=== PATIENT | male | born 1975 | race Caucasian/White ===

== ENCOUNTER → 2017-03-10 | Outpatient (CLI) | payer OTHER ==
[2017-03-10 12:18] LABS: Basophils # (A) 0.1 k/uL (0-0.2); Basophils % (A) 1 %; CH 31.2; CHCM 33.8; Eosinophils # (A) 0.2 k/uL (0-0.7); Eosinophils % (A) 2 %; HCT 46.2 % (39.0-53.0); HDW 2.75; HGB 15.4 gm/dL (13.0-17.5); Luc # (Auto) 0.36; Luc % (Auto) 4; Lymphocytes # (A) 3.2 k/uL (1.0-4.8); Lymphocytes % (A) 33 %; MCHC 33.4 g/dL (31.0-37.0); MCV 92.8 fL (80.0-100.0); Mean Platelet Volume 7.6; Monocytes # (A) 0.6 k/uL (0-1.0); Monocytes % (A) 7 %; Neutrophils # (A) 5.1 k/uL (1.3-7.7); Neutrophils % (A) 54 %; RBC 4.97 m/uL (4.30-5.90); RDW 13.7 % (11.5-15.5); WBC 9.5 k/uL (3.8-10.6); WBC (Perox) 9.53
--- NOTE | 2017-03-11 15:53 | MR ---
EXAMINATION TYPE: MR brain/cspine wo/w DATE OF EXAM: 03/10/2017 11:26 AM COMPARISON: 08/18/2015 HISTORY: 41-year-old male follow up MS. TECHNIQUE: Multiplanar, multisequence images of the brain and brainstem is performed without and wit h utilizing 15 mL intravenous MultiHance gadolinium contrast. Demyelinating disease protocol with ad ditional Sagittal Flair sequence performed. Subsequent multiplanar, multisequence imaging of the cervical spine without and with contrast. FINDINGS: BRAIN: T2 Lesions Present : Yes along with Orozco's fingers. Approximate Number of Lesions: Again, difficult to count due to some being not well defined, approxim ately within each cerebral hemisphere. Locations Identified : Juxtacortical, deep white matter, periventricular, especially periatrial, and also callososeptal. Redemonstrated lesion within the left left ventral paco, right thalamus, and righ t middle cerebellar peduncle. Size of Reference Lesion(s): 1. 9 x 8 mm left frontal lobe, axial image 22, stable. Enhancing Lesion(s) Present: No. T1 Hypointense Lesion(s) Present: Yes. Change from Prior: Aside from periatrial lesions appearing minimally less bulky as compared to prior exam, overall appearance is unchanged. Diffusion weighted images demonstrate no evidence of a recent infarct or other diffusion abnormality. There is no worrisome extra-axial fluid collection. The ventricular system and cisternal spaces ar e normal in size and appearance. The brain volume is age appropriate. Midline structures demonstrate normal morphology. The craniocervical junction appears within normal limits. Post contrast images demonstrate no abnormal enhancement. The dural venous sinuses appear pa tent. Some stable trace trapped fluid within the inferior mastoid air cells. Slight leftward nasal septal d eviation. Globes are intact. CERVICAL SPINE: No craniocervical junction of the midbody, predental space widening, or prevertebral soft tissue swel ling. Normal alignment of the cervical spine. Very mild early desiccation of the C2-C3, C3-C4, and C5-C6 intervertebral discs. No focal disc herniation. Scattered facet arthropathy mid to lower cervical spine. No significant spinal canal or neuroforaminal stenosis. No discrete T2 cord signal abnormality with some mild artifacts projecting over the cord no enhanceme nt of the cervical cord. No prevertebral or paravertebral soft tissue abnormality seen. COMBINED IMPRESSION: BRAIN: 1. Redemonstrated moderate to advanced changes of MS. No enhancing plaques. Aside from the periatrial lesions being minimally less bulky, overall disease is stable. CERVICAL SPINE: 1. Minimal early intervertebral disc desiccation at a few levels. Otherwise, negative MRI of the cerv ical spine; no convincing evidence of demyelinating disease in the cord.
== END | disposition home or self-care (01) ==
LOC: RADMRIMAIN 10:14
PROVIDERS: ATTEND Nurse Practitioner Gerontology
DX: G35 Multiple sclerosis (principal)
CPT/HCPCS: 85025; 70553; 72156; 36415; A9577

== ENCOUNTER → 2018-01-22 | Outpatient (CLI) | payer OTHER ==
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
== END | disposition home or self-care (01) ==
LOC: RADXRYALE 13:16
PROVIDERS: ATTEND Internal Medicine
DX: M25.519 Pain in unspecified shoulder (principal)

== ENCOUNTER → 2018-03-15 | Outpatient (CLI) | payer OTHER ==
--- NOTE | 2018-03-16 19:15 | MR ---
EXAMINATION TYPE: MR shoulder LT wo con DATE OF EXAM: 03/15/2018 COMPARISON: Radiograph 01/22/2018 HISTORY: 42-year-old male with left shoulder pain TECHNIQUE: Multiplanar, multisequence imaging of the left shoulder is performed without contrast. FINDINGS: There is intermediate signal within the intracapsular portion of the long head biceps tendon at the j unction with the extracapsular portion, sagittal T2 FS image 12. The extracapsular portion remains ap propriately situated along the bicipital groove. Borderline thickening of the coracohumeral ligament at 3.6 mm and some strandy signal intensities in the rotator cuff interval. Mild heterogeneous signal of the subscapularis tendon which remains intact. Mild degenerative joint space narrowing and capsular hypertrophy at the acromioclavicular joint. Ther e is slight encroachment on the subacromial space appears preserved fat plane between the underlying supraspinatus myotendinous junction. Trace fluid/thickening of the subacromial/subdeltoid bursa with bursal sided fraying of the supraspin atus tendon. There is some focal tendinosis at the footprint of the infraspinatus tendon and anterior ly along the articular sided fibers of the supraspinatal tendon measuring 8 x 7 mm. No discrete tear of either the supraspinatus or infraspinatus tendons. Preserved bulk of the rotator cuff musculature. There is very subtle edema within the teres minor mu scle seen with tight windowing on the sagittal T2 FS sequence. Evaluation of the glenohumeral joint shows no discrete labral tear by nonarthrographic technique and no paralabral cyst. The joint articular cartilage is maintained. No joint effusion. No Hill-Sachs deformity or os acromiale. Mild patchy red marrow hyperplasia is present and can be seen in setting of anemia, obesity, smoking, and chronic disease. IMPRESSION: 1. Long head biceps tendinosis at the junction of the intracapsular and extracapsular portions. There is also borderline thickening of the coracohumeral ligament/biceps yifan which could represent a mi ld sprain. 2. There is bursal sided fraying of the supraspinatus tendon. Additionally, focal insertional tendino sis of the anterior supraspinatus tendon and also of the posterior infraspinatus tendon. No discrete rotator cuff tear. 3. Very subtle edema within the teres minor muscle seen with tight windowing on the fluid sensitive s equence. Correlate for possible quadrilateral space syndrome. No fatty atrophy is seen at this time. 4. Mild AC joint OA.
== END | disposition home or self-care (01) ==
LOC: RADMRIMAIN 06:48
PROVIDERS: ATTEND Internal Medicine
DX: M67.814 Other specified disorders of tendon, left shoulder (principal); M19.012 Primary osteoarthritis, left shoulder; R60.9 Edema, unspecified

== ENCOUNTER 2018-04-23 12:56 | Emergency (ER) | payer OTHER ==
[2018-04-23 13:05] VITALS: BP 111/69; PULSE 76; RESP 16; TEMP 97.5
[2018-04-23 14:06] LABS: Basophils % (A) 0 %; Eosinophils # (A) 0.1 k/uL (0-0.7); Eosinophils % (A) 1 %; HCT 43.9 % (39.0-53.0); HGB 14.3 gm/dL (13.0-17.5); Lymphocytes # (A) 2.9 k/uL (1.0-4.8); Lymphocytes % (A) 27 %; MCH 29.7 pg (25.0-35.0); MCHC 32.5 g/dL (31.0-37.0); MCV 91.2 fL (80.0-100.0); Mean Platelet Volume 7.5; Monocytes # (A) 0.6 k/uL (0-1.0); Monocytes % (A) 6 %; Neutrophils # (A) 6.8 k/uL (1.3-7.7); Neutrophils % (A) 64 %; Platelet Count 170 k/uL (150-450); RBC 4.81 m/uL (4.30-5.90); WBC 10.7 k/uL (3.8-10.6)
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
[2018-04-23 14:19] LABS: ALT 27 U/L (21-72); AST 24 U/L (17-59); Albumin 3.6 g/dL (3.5-5.0); Alcohol <10 mg/dL; Alkaline Phosphatase 97 U/L (38-126); Amylase 34 U/L (30-110); Anion Gap 7 mmol/L; Blood Urea Nitrogen 12 mg/dL (9-20); Calcium 8.9 mg/dL (8.4-10.2); Carbon Dioxide 29 mmol/L (22-30); Chloride 102 mmol/L (98-107); Glucose 157 mg/dL (74-99); Lipase 54 U/L (23-300); Potassium 4.3 mmol/L (3.5-5.1); Sodium 138 mmol/L (137-145); Total Bilirubin 0.4 mg/dL (0.2-1.3); Total Protein 6.1 g/dL (6.3-8.2)
--- NOTE | 2018-04-23 14:20 | XR ---
EXAMINATION TYPE: XR pelvis AP view DATE OF EXAM: 04/23/2018 COMPARISON: NONE HISTORY: Pain The osseous structures are intact and the joint spaces are preserved. No acute fracture is seen. Vi sualized bowel gas pattern is nonspecific. Arthropathy of the hips. Correlate for chronic acetabular labral tears. IMPRESSION: 1. No acute fracture.
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
[2018-04-23 14:23] LABS: Partial Thromboplastin Time 23.4 sec (22.0-30.0)
[2018-04-23 14:37] LABS: Creatine Kinase 128 U/L (55-170)
[2018-04-23 14:45] LABS: Glucose,Whole Blood 102 mg/dL (75-99)
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
[2018-04-23 14:49] LABS: Creatine Kinase MB 1.3 ng/mL (0.0-2.4); Troponin I <0.012 ng/mL (0.000-0.034)
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
--- NOTE | 2018-04-23 17:29 | XR ---
EXAMINATION TYPE: XR wrist limited RT DATE OF EXAM: 04/23/2018 COMPARISON: Today HISTORY: Post reduction TECHNIQUE: 2 views FINDINGS: 2 views are obtained through the cast but show transverse impacted fracture of the distal r adius. Major fragments are in good position. There is normal alignment. Fractures comminuted. IMPRESSION: Satisfactory reduction of the radius fracture. No complicating process seen.
== END 2018-04-23 17:55 | disposition home or self-care (01) ==
LOC: EC 12:56
DX: S52.501A Unspecified fracture of the lower end of right radius, initial encounter for closed fracture (principal); S00.31XA Abrasion of nose, initial encounter; V29.9XXA Motorcycle rider (driver) (passenger) injured in unspecified traffic accident, initial encounter; Y92.410 Unspecified street and highway as the place of occurrence of the external cause
CPT/HCPCS: 36415; 93005; 86900; 86901; 80053; 82150; 82550; 82553; 83605; 83690; 84484; 85025; 85610; 85730; 86850; 80320; 72170; 73090; 73100; 73130; 71045; 72125; 70450; 71260; 74177; 99284; 25605; 99152; 99153; 96374; Q9967

== ENCOUNTER → 2018-10-09 | Outpatient (CLI) | payer OTHER ==
--- NOTE | 2018-10-10 07:16 | US ---
EXAMINATION TYPE: US thyroid st tissue head/neck DATE OF EXAM: 10/09/2018 COMPARISON: NONE CLINICAL HISTORY: E04.1 THYROID CYST. GLAND SIZE: Right Lobe: 5.0 x 1.3 x 1.6 cm Overall Parenchyma: heterogenous Left Lobe: 4.0 x 1.0 x 1.4 cm Overall Parenchyma: heterogeneous Isthmus Thickness: 0.2m NODULES RIGHT: # of nodules measured on right: 1 1. 0.9 x 0.7 cm 0.8 cystic nodule at the lower pole with well-defined margins; . This nodule is wid er than tall and shows no intranodular vascularity. Prior size: No previous LEFT: # of nodules measured on left: 0 ISTHMUS: # of nodules measured in the isthmus: 0 Bilateral neck scanned, no evidence of lymphadenopathy. IMPRESSION: 1. Nonspecific cystic nodule right thyroid lobe. Otherwise unremarkable study.
== END ==
LOC: RADUSWWP 15:41
PROVIDERS: ATTEND Internal Medicine
DX: E04.1 Nontoxic single thyroid nodule (principal)
CPT/HCPCS: 76536

== ENCOUNTER → 2019-01-17 | Outpatient (CLI) | payer OTHER ==
--- NOTE | 2019-01-19 12:02 | MR ---
EXAMINATION TYPE: MR brain/cspine wo/w DATE OF EXAM: 01/17/2019 COMPARISON: 03/10/2017 HISTORY: MS, hypersomnia TECHNIQUE: Multiplanar, multisequence images of the brain and brainstem is performed without and with IV contras t, utilizing 6.5 mL intravenous Gadavist . FINDINGS: Diffusion weighted images demonstrate no evidence of a recent infarct or other diffusion ab normality. The ventricular system and cisternal spaces are normal in size and appearance. The brain volume is age appropriate. Areas of abnormal signal involving the basal ganglia likely related to pr ominent Virchow-Cosme spaces. Focal area of abnormal signal involving the right thalamus is nonspecif ic. No enhancement. Midline structures demonstrate normal morphology. The craniocervical junction appears within normal limits. Post contrast images demonstrate no abnormal enhancement. The dural venous sinuses appear pa tent. There is a nasal septal deviation changes of chronic mild sinusitis. Trace amount of fluid surr ounding the optic nerves is nonspecific WHITE MATTER: There are confluent and numerous areas of abnormal signal within the white matter. There are approximately 80-90 areas of abnormal signal seen within the white matter. Largest lesion measures approximately 1.4 cm. There are lesions perpendicular to ventricular system. There is abnormal signal within the corpus callosum and there is thinning of the corpus callosum No enhancing lesions. Relative to the prior exam regions appear to be similar in size, number and morphology Single lesion is seen within the left paco anteriorly stable. A single lesion is seen in the posterior fossa within the right cerebellar peduncle which is stable. IMPRESSION: 1. Stable diffuse white matter changes. Differential diagnosis includes demyelinating process. Number and size of lesions are stable and unchanged from the prior exam. There are no enhancing lesions. MRI CERVICAL SPINE: CLINICAL HISTORY: MS TECHNIQUE: Multiplanar, multisequence imaging of the cervical spine is performed without and with IV contrast, 6.5 cc of Gadavist was given intravenously. COMPARISON: None FINDINGS: Sagittal images of the cervical spine show the craniocervical junction to appear within nor mal limits. The cervical and upper thoracic spinal cord is normal in course, caliber, and signal. Vertebral alignment is anatomic. The vertebral body and intravertebral disk heights are normal. The bone marrow signal intensity is within normal limits. Axial images show there is no significant focal disc disease, spinal canal stenosis, neural foraminal narrowing, or spinal cord compromise at any cervical level. IMPRESSION: 1. No disc herniation, canal stenosis, or foraminal encroachment. No abnormal signal within the spina l cord.
== END | disposition home or self-care (01) ==
LOC: RADMRIMAIN 09:17
PROVIDERS: ATTEND Nurse Practitioner Gerontology
DX: R90.82 White matter disease, unspecified (principal); G47.19 Other hypersomnia; G35 Multiple sclerosis; Z79.899 Other long term (current) drug therapy
CPT/HCPCS: 70553; 72156; A9585

== ENCOUNTER → 2019-01-22 | Outpatient (CLI) | payer OTHER ==
[2019-01-22 12:16] LABS: Anisocytosis Slight; Basophils % (A) 1 %; Eosinophils # (A) 0.2 k/uL (0-0.7); Eosinophils % (A) 4 %; HCT 39.9 % (39.0-53.0); HGB 13.2 gm/dL (13.0-17.5); Lymphocytes # (A) 1.1 k/uL (1.0-4.8); Lymphocytes % (A) 18 %; MCH 30.6 pg (25.0-35.0); MCHC 32.9 g/dL (31.0-37.0); Mean Platelet Volume 7.5; Monocytes # (A) 0.7 k/uL (0-1.0); Monocytes % (A) 11 %; Neutrophils # (A) 3.9 k/uL (1.3-7.7); Neutrophils % (A) 63 %; RBC 4.29 m/uL (4.30-5.90); RDW 19.3 % (11.5-15.5); WBC 6.2 k/uL (3.8-10.6)
[2019-01-22 12:18] LABS: Platelet Count 145 k/uL (150-450)
== END | disposition home or self-care (01) ==
LOC: LABWHC1 09:49
PROVIDERS: ATTEND Nurse Practitioner Gerontology
DX: G47.19 Other hypersomnia (principal); G35 Multiple sclerosis
CPT/HCPCS: 36415; 85025

== ENCOUNTER → 2019-04-29 | Outpatient (CLI) | payer OTHER ==
--- NOTE | 2019-04-29 17:19 | XR ---
PROCEDURE: XR femur LT - 4V DATE AND TIME: 04/29/2019 5:03 PM CLINICAL INDICATION: PHH; C34.90, G4.909, G35 TECHNIQUE: AP and lateral views, total 4 views. COMPARISON: 04/23/2018 AP pelvis radiograph. FINDINGS: Imaging obtained from the left hip to the left knee. There is no fracture or malalignment. There is subtle osteopenia in the proximal-most left femoral shaft with ill-defined zones of transiti on. This is a subtle finding and not definitively pathologic. However, MRI or total body bone scan ca n be used to study the left femur with greater sensitivity than radiographs. Also, there is a 1 cm smoothly-marginated curvilinear calcification, intimately related to the midsha ft anterior femoral cortex. This has benign appearance. The joints and soft tissues are unremarkable. IMPRESSION: Proximal femoral shaft nonspecific subtle finding.
== END | disposition home or self-care (01) ==
LOC: RADXRMAIN 16:48
PROVIDERS: ATTEND Internal Medicine Hematology & Oncology
DX: C34.90 Malignant neoplasm of unspecified part of unspecified bronchus or lung (principal); G43.909 Migraine, unspecified, not intractable, without status migrainosus; G35 Multiple sclerosis

== ENCOUNTER 2019-05-27 11:46 | Emergency (ER) | payer OTHER ==
--- NOTE | 2019-05-27 12:01 | ED ---
General Adult HPI - General Chief complaint: Fall Stated complaint: Fall Time Seen by Provider: 05/27/19 11:49 Source: patient, EMS, RN notes reviewed Mode of arrival: EMS Limitations: altered mental status, physical limitation - History of Present Illness Initial comments: Patient is a unresponsive 43-year-old male presenting to the emergency departmen t by EMS. History is very limited. Patient is nonverbal at this time. Nurse reports that patient did provide his name and date but was receiving report from EMS. Patient is unable to state his name or provide any verbal capability at this point. Patient reportedly was found by child age 10-12 in the bathroom. EMS was called. No family is present at this time. Patient reportedly has a history of some unknown cancer. Reportedly his cancer has "blown up "per the child. Patient reportedly receives treatment daily however further history regarding this is limited. There is also report that patient is DO NOT RESUSCITATE however no paperwork was available. EMS found patient on the floor in the bathroom between the wall and a commode. They have concern regarding patient not using the left side and deviating gaze to the right. Unclear patient has history of similar symptoms previously. - Related Data Home Medications Medication Instructions Recorded Confirmed Citalopram Hydrobromide [CeleXA] 20 mg PO DAILY 04/23/18 05/27/19 Dextroamphetamine/Amphetamine 30 mg PO DAILY 04/23/18 05/27/19 [Adderall] Gabapentin [Neurontin] 300 mg PO TID 04/23/18 05/27/19 Tysabri 1 dose IV Q30D 04/23/18 05/27/19 Baclofen [Lioresal] 20 mg PO Q8H 05/27/19 05/27/19 Allergies Allergy/AdvReac Type Severity Reaction Status Date / Time No Known Allergies Allergy Verified 05/27/19 12:31 Review of Systems ROS Statement: Those systems with pertinent positive or pertinent negative responses have been documented in the HPI. ROS Other: All systems not noted in ROS Statement are negative. Limitations: ROS unobtainable due to patients medical condition Past Medical History Past Medical History: Cancer, GERD/Reflux, Neurologic Disorder Additional Past Medical History / Comment(s): Multiple sclerosis. LUNG CANCER- NONSQUAMOUS. History of Any Multi-Drug Resistant Organisms: None Reported Past Surgical History: Hernia Repair, Orthopedic Surgery Past Anesthesia/Blood Transfusion Reactions: No Reported Reaction Past Psychological History: No Psychological Hx Reported Smoking Status: Current every day smoker Past Alcohol Use History: None Reported Past Drug Use History: None Reported General Exam Limitations: altered mental status, physical limitation General appearance: other (Patient is alert with deviation of the gaze to the right.) Head exam: Present: other (Soft tissue swelling left frontal) Eye exam: Present: PERRL, other (Eyes are deviated to the right) ENT exam: Present: normal oropharynx Neck exam: Present: normal inspection Respiratory exam: Present: normal lung sounds bilaterally Cardiovascular Exam: Present: regular rate, normal rhythm GI/Abdominal exam: Present: soft. Absent: tenderness Extremities exam: Present: normal inspection Neurological exam: Present: alert, altered, other (Left-sided neglect. Nonverbal. Eyes deviated to the right. Apparent normal strength on the right. Significant weakness on the left.) Expanded Neurological exam: Present: total aphasia, protecting the airway Cranial nerves: EOM's Intact: Abnormal Left (Eyes are deviated to the right) Motor strength exam: RUE: 5, LUE: 0, RLE: 5, LLE: 2/1 Eye Response: (4) open spontaneously Motor Response: (4) withdraws to pain Verbal Response: (1) no verbal response Psychiatric exam: Present: other (Nonverbal) Skin exam: Present: normal color. Absent: rash Course Vital Signs 05/27/19 05/27/19 05/27/19 11:50 12:50 13:00 Temperature 98 F Pulse Rate 98 92 90 Respiratory 24 18 18 Rate Blood Pressure 122/93 123/87 120/88 O2 Sat by Pulse 100 98 98 Oximetry - Reevaluation(s) Reevaluation #1: 05/27/19 12:06 Code stroke was called at noon Family is not present. Attempted to call patient's oncologist however the office closed. Oncologist has been paged. 05/27/19 12:20 is present. Last known well was 5:30 AM. Patient has known stage IV lung cancer. Patient does have brain metastases. Patient does have mild difficulty with walking normally and occasionally uses a cane. She states patient is no intubation. Patient does receive chemotherapy here with Dr. Servin. Patient has previously had radiation. 05/27/19 13:00 Case was discussed with Dr. Wade. This was interrupted secondary to having to go to a code on the floor. Case was again discussed with Dr. Wade who states patient does have a history of untreated brain metastases. He states TPA is contraindicated secondary to this. He did have MRI from [facility] on 05/09/19 showing concern for lesions in the right occipital and left parietal and possible other lesions. Dr. Mccullough is aware and involved with case 05/27/19 14:00 Case was discussed in detail with Dr. henderson, covering for Dr. Arceo, who will admit. Case was also discussed WITH neurology, Dr. Mora who will consult. She agrees to no aspirin secondary to thrombocytopenia EKG Findings - EKG Comments: EKG Findings:: Sinus tachycardia 101. TN 112. QRS 78. QT 340. QTc 451. Normal axis. Normal QRS. No acute ST change. Medical Decision Making - Lab Data Result diagrams: 05/27/19 12:07 05/27/19 12:07 Lab Results 05/27/19 05/27/19 05/27/19 Range/Units 12:01 12:07 12:07 WBC 1.2 L* (3.8-10.6) k/uL RBC 4.03 L (4.30-5.90) m/uL Hgb 11.1 L (13.0-17.5) gm/dL Hct 34.7 L (39.0-53.0) % MCV 86.1 (80.0-100.0) fL MCH 27.5 (25.0-35.0) pg MCHC 32.0 (31.0-37.0) g/dL RDW 14.8 (11.5-15.5) % Plt Count 17 L* (150-450) k/uL Neutrophils % (Manual) 60 % Lymphocytes % (Manual) 34 % Monocytes % (Manual) 4 % Eosinophils % (Manual) 2 % Neutrophils # (Manual) 0.72 L (1.3-7.7) k/uL Lymphocytes # (Manual) 0.41 L (1.0-4.8) k/uL Monocytes # (Manual) 0.05 (0-1.0) k/uL Eosinophils # (Manual) 0.02 (0-0.7) k/uL Nucleated RBCs 1 H (0-0) /100 WBC Poikilocytosis (manual Present Anisocytosis (manual) Present PT (9.0-12.0) sec INR (<1.2) APTT (22.0-30.0) sec Sodium 136 L (137-145) mmol/L Potassium 4.0 (3.5-5.1) mmol/L Chloride 96 L (98-107) mmol/L Carbon Dioxide 28 (22-30) mmol/L Anion Gap 12 mmol/L BUN 25 H (9-20) mg/dL Creatinine 1.14 (0.66-1.25) mg/dL Est GFR (CKD-EPI)AfAm >90 (>60 ml/min/1.73 sqM) Est GFR (CKD-EPI)NonAf 79 (>60 ml/min/1.73 sqM) Glucose 190 H (74-99) mg/dL POC Glucose (mg/dL) 182 H (75-99) mg/dL POC Glu Mosaic Layer ID Demetrius Suarez Calcium 9.4 (8.4-10.2) mg/dL Total Bilirubin 0.5 (0.2-1.3) mg/dL AST 62 H (17-59) U/L ALT 35 (21-72) U/L Alkaline Phosphatase 132 H (38-126) U/L Creatine Kinase 195 H (55-170) U/L Total Protein 6.8 (6.3-8.2) g/dL Albumin 3.6 (3.5-5.0) g/dL 05/27/19 Range/Units 12:07 WBC (3.8-10.6) k/uL RBC (4.30-5.90) m/uL Hgb (13.0-17.5) gm/dL Hct (39.0-53.0) % MCV (80.0-100.0) fL MCH (25.0-35.0) pg MCHC (31.0-37.0) g/dL RDW (11.5-15.5) % Plt Count (150-450) k/uL Neutrophils % (Manual) % Lymphocytes % (Manual) % Monocytes % (Manual) % Eosinophils % (Manual) % Neutrophils # (Manual) (1.3-7.7) k/uL Lymphocytes # (Manual) (1.0-4.8) k/uL Monocytes # (Manual) (0-1.0) k/uL Eosinophils # (Manual) (0-0.7) k/uL Nucleated RBCs (0-0) /100 WBC Poikilocytosis (manual Anisocytosis (manual) PT 11.4 (9.0-12.0) sec INR 1.1 (<1.2) APTT 20.9 L (22.0-30.0) sec Sodium (137-145) mmol/L Potassium (3.5-5.1) mmol/L Chloride (98-107) mmol/L Carbon Dioxide (22-30) mmol/L Anion Gap mmol/L BUN (9-20) mg/dL Creatinine (0.66-1.25) mg/dL Est GFR (CKD-EPI)AfAm (>60 ml/min/1.73 sqM) Est GFR (CKD-EPI)NonAf (>60 ml/min/1.73 sqM) Glucose (74-99) mg/dL POC Glucose (mg/dL) (75-99) mg/dL POC Glu Mosaic Layer ID Calcium (8.4-10.2) mg/dL Total Bilirubin (0.2-1.3) mg/dL AST (17-59) U/L ALT (21-72) U/L Alkaline Phosphatase (38-126) U/L Creatine Kinase (55-170) U/L Total Protein (6.3-8.2) g/dL Albumin (3.5-5.0) g/dL - Radiology Data Radiology results: report reviewed (CT of the cervical spine shows no acute osseous have normality. Of the brain shows suggestion of developing large right middle cerebral artery infarct. CT angiogram of the head and neck shows limited flow proximal right A1 and M1 segments.), image reviewed (Chest x-ray shows left upper lobe fullness. She really of a foreign bodies left axillary region. Fullness superior mediastinum.) Critical Care Time Critical Care Time: Yes Total Critical Care Time: 33 Disposition Clinical Impression: CVA (cerebral vascular accident), Thrombocytopenia, Metastatic primary lung cancer Disposition: ADMITTED IP TO THIS [facility] Condition: Serious Is patient prescribed a controlled substance at d/c from ED?: No Referrals: Leigh Ann Arceo MD [Primary Care Provider] - 1-2 days Decision Time: 14:01
[2019-05-27 12:02] LABS: Glucose,Whole Blood 182 mg/dL (75-99)
--- NOTE | 2019-05-27 12:31 | CT ---
EXAMINATION TYPE: CT brain cspine wo con DATE OF EXAM: 05/27/2019 COMPARISON: 04/23/2018 HISTORY: Fall, altered mental status, gazing to the Rt CT DLP: See CTA report today, Automated exposure control for dose reduction was used. CONTRAST: None CT of the brain is performed utilizing 3 mm thick sections through the posterior fossa and 3 mm thick sections through the remaining calvarium. Study is performed within 24 hours of arrival to the hospital. No abnormal hyperdensity is present to suggest an acute intracranial hemorrhage. No mass lesion is evident. There appears to be some subtle hypodensity diffusely within the right middle cerebral artery distrib ution. The sulci on the right are slightly less well visualized than on the left. Early large right m iddle cerebral artery infarct may be present. This appears to be an interval change. Correlate with s ymptoms. Ventricles and sulci are somewhat prominent for the patient age. Paranasal sinuses and mastoid air cells within the sietn-lo-gmgc are clear. IMPRESSIONS: 1. Findings suggestive for developing large right middle cerebral artery infarct. 2. Report was called to Dr. Rendon by Dr. Fowler by telephone 1228 hours 05/27/2019 CT cervical spine. COMPARISON: None CT of the cervical spine is performed in the axial plane at 2 mm thick sections. Reconstructed image s in the coronal, and sagittal plane are reviewed on the computer. There is scoliosis present. No acute fractures are evident. Disc heights are preserved. Vertebral body heights are preserved. No spinal canal stenosis is evident. No neural foraminal stenosis is evident. IMPRESSIONS: 1. No acute osseous abnormality cervical spine.
[2019-05-27 12:37] LABS: ALT 35 U/L (21-72); AST 62 U/L (17-59); African American GFR (CKD) >90 (>60 ml/min/1.73 sqM); Albumin 3.6 g/dL (3.5-5.0); Alkaline Phosphatase 132 U/L (38-126); Anion Gap 12 mmol/L; Blood Urea Nitrogen 25 mg/dL (9-20); Calcium 9.4 mg/dL (8.4-10.2); Carbon Dioxide 28 mmol/L (22-30); Chloride 96 mmol/L (98-107); Creatine Kinase 195 U/L (55-170); Glucose 190 mg/dL (74-99); HCT 34.7 % (39.0-53.0); HGB 11.1 gm/dL (13.0-17.5); MCH 27.5 pg (25.0-35.0); MCV 86.1 fL (80.0-100.0); Mean Platelet Volume 6.5; RBC 4.03 m/uL (4.30-5.90); RDW 14.8 % (11.5-15.5); Sodium 136 mmol/L (137-145); Total Bilirubin 0.5 mg/dL (0.2-1.3); Total Protein 6.8 g/dL (6.3-8.2)
--- NOTE | 2019-05-27 12:38 | XR ---
EXAMINATION TYPE: XR chest 1V portable DATE OF EXAM: 05/27/2019 COMPARISON: 04/23/2018 INDICATION: Altered mental status, fall TECHNIQUE: Single frontal view of the chest is obtained. FINDINGS: The heart size is normal. Superior mediastinum appears somewhat full. Multiple surgical clips are pr esent. The pulmonary vasculature is normal. There may be a mild left suprahilar infiltrate. Could be postsurgical change. Scattered densities are within the left axillary region. Sternotomy wires are present IMPRESSION: 1. Possible left upper lobe infiltrate. Correlate with the patient's symptoms. 2. Scattered radiopaque foreign bodies left axillary region. 3. Some fullness within the superior mediastinum. Follow-up chest x-rays are recommended. CT could be performed as clinically indicated.
[2019-05-27 12:42] LABS: Platelet Count 17 k/uL (150-450); WBC 1.2 k/uL (3.8-10.6)
[2019-05-27 12:45] LABS: INR 1.1 (<1.2); Prothrombin Time 11.4 sec (9.0-12.0)
--- NOTE | 2019-05-27 12:47 | CT ---
EXAMINATION TYPE: CT angio head neck DATE OF EXAM: 05/27/2019 HISTORY: Fall, altered mental status, gazing to the Rt COMPARISON: None CT DLP: 1549.7 (brain, cervical, carotid, COW) mGycm. Automated Exposure Control for Dose Reduction was Utilized. TECHNIQUE: CTA scan of the neck is performed with IV Contrast, patient injected with 50 mL of Isovue 370, axial images are obtained, coronal and sagittal reformatted images are reviewed. Three-D recons tructed images are created on an independent workstation and reviewed. Source images are reviewed. FINDINGS: Carotid/Vascular Structures: There is a three-vessel arch. Vertebral arteries are codominant. Interna l carotid arteries bifurcate normally without significant stenosis at the origins. Cervical of Schaffer: There is poor visualization of the right A1 and M1 segment flow. The branching ri ght middle cerebral artery branches are not identified. There is no contrast within opercular loops o n the right. Findings are compatible with a large right middle cerebral artery infarct. Posterior communicating arteries are not identified. An anterior communicating artery appears to be p resent. A2 segments appear normal. Other: Some right parietal soft tissue swelling may be present. IMPRESSION: 1. Limited flow within the proximal right A1 and M1 segments. M1 branching is not identified and no c ontrast within middle cerebral artery branches or articular vessels on the right is evident. Large ri ght middle cerebral artery infarct is likely developing. 2. No flow-limiting stenosis bilateral carotid bifurcations.
[2019-05-27 12:51] VITALS: RESP 18
[2019-05-27 12:53] LABS: Eosinophils # (M) 0.02 k/uL (0-0.7); Lymphocytes # (M) 0.41 k/uL (1.0-4.8); Monocytes # (M) 0.05 k/uL (0-1.0); Neutrophils % (M) 60 %; Nucleated Red Blood Cells 1 /100 WBC (0-0); Total Cells Counted 100
[2019-05-27 12:54] LABS: Anisocytosis (M) Present; Poikilocytosis (M) Present
[2019-05-27 13:02] LABS: Partial Thromboplastin Time 20.9 sec (22.0-30.0)
[2019-05-27] MEDS ORDERED: SODIUM CHLORIDE 0.9% 1,000 ML IV SCH (14:15)
[2019-05-27] MEDS ORDERED: MORPHINE SULFATE 2 MG/ML SYRINGE IVP STA (15:21)
[2019-05-27 18:07] VITALS: BP 128/70; PULSE 78; TEMP 98.8
--- NOTE | 2019-05-27 18:12 | P.HPIM ---
History of Present Illness This is a pleasant 43 years old male with past medical history of lung cancer with metastasis to the brain, GERD, multiple sclerosis. He presents because he was found on the floor unresponsive. pt could not provide information , as per at bed side, pt was diagnosed with lung cancer on 08/2018, he underwent surgical resection with chemo-radiotherapy. on early april , pt was found to have metastatic disease involve his bones, adrenal gland and two spots in the brain, pt got two rounds of chemotherapy , last dose was on last sunday about 4 days ago, this morning left him to work where he was at his usual state where he can recognize his and talks to her . later on this pt was found unresponsive at the restroom at 10:30 by their little daughter. Patient vitals are stable, that showed pancytopenia with severe leukopenia at 1.2 and neutrophils 0.72, hemoglobin 11.1 and platelets 17 K. INR is 1.1, sodium 136, creatinine 1.1, glucose slightly elevated at 190 and liver enzymes are mildly elevated with AST at 62. Chest x-ray: Left upper lobe infiltrate/fullness, as well as in the superior mediastinum. CT of the brain with angiogram showing limited flow in right A1 and M1 segments, large right middle cerebral infarct. EKG showing sinus tachycardia at 101. Patient was started on IV fluids however aspirin or other anticoagulant could not be provided for the patient in view of his severe thrombocytopenia as his high-risk for bleeding Review of Systems n/a Past Medical History Past Medical History: Cancer, GERD/Reflux, Neurologic Disorder Additional Past Medical History / Comment(s): Multiple sclerosis. LUNG CANCER- NONSQUAMOUS. History of Any Multi-Drug Resistant Organisms: None Reported Past Surgical History: Hernia Repair, Orthopedic Surgery Past Anesthesia/Blood Transfusion Reactions: No Reported Reaction Past Psychological History: No Psychological Hx Reported Smoking Status: Current every day smoker Past Alcohol Use History: None Reported Past Drug Use History: None Reported Medications and Allergies Home Medications Medication Instructions Recorded Confirmed Type Citalopram Hydrobromide [CeleXA] 20 mg PO DAILY 04/23/18 05/27/19 History Dextroamphetamine/Amphetamine 30 mg PO DAILY 04/23/18 05/27/19 History [Adderall] Gabapentin [Neurontin] 300 mg PO TID 04/23/18 05/27/19 History Tysabri 1 dose IV Q30D 04/23/18 05/27/19 History Baclofen [Lioresal] 20 mg PO Q8H 05/27/19 05/27/19 History Allergies Allergy/AdvReac Type Severity Reaction Status Date / Time No Known Allergies Allergy Verified 05/27/19 12:31 Physical Exam Vitals: Vital Signs Temp Pulse Resp BP Pulse Ox 05/27/19 13:00 90 18 120/88 98 05/27/19 12:50 92 18 123/87 98 05/27/19 11:50 98 F 98 24 122/93 100 Intake and Output 05/26/19 05/27/19 05/27/19 22:59 06:59 14:59 Other: Weight 70 kg -GENERAL: pt is not responsive, not in any acute distress. this build , cachectic HEENT: Pupils are round and equally reacting to light. EOMI. No scleral icterus. No conjunctival pallor. Normocephalic, atraumatic. No pharyngeal erythema. No thyromegaly. CARDIOVASCULAR: S1 and S2 present. No murmurs, rubs, or gallops. PULMONARY: Chest is clear to auscultation, no wheezing or crackles. ABDOMEN: Soft, nontender, nondistended, normoactive bowel sounds. No palpable organomegaly. MUSCULOSKELETAL: No joint swelling or deformity. EXTREMITIES: No cyanosis, clubbing, or pedal edema. -NEUROLOGICAL: does not responds to verbal or tactile stimuli, his head turned to the right side and as well as his eyes . pt looks unable to move his left upper or lower extremity compared to small no specific movement on his right upper and lower extremity SKIN: No rashes. Results CBC & Chem 7: 05/27/19 12:07 05/27/19 12:07 Labs: Abnormal Lab Results - Last 24 Hours (Table) 05/27/19 05/27/19 05/27/19 Range/Units 12:01 12:07 12:07 WBC 1.2 L* (3.8-10.6) k/uL RBC 4.03 L (4.30-5.90) m/uL Hgb 11.1 L (13.0-17.5) gm/dL Hct 34.7 L (39.0-53.0) % Plt Count 17 L* (150-450) k/uL Neutrophils # (Manual) 0.72 L (1.3-7.7) k/uL Lymphocytes # (Manual) 0.41 L (1.0-4.8) k/uL Nucleated RBCs 1 H (0-0) /100 WBC APTT (22.0-30.0) sec Sodium 136 L (137-145) mmol/L Chloride 96 L (98-107) mmol/L BUN 25 H (9-20) mg/dL Glucose 190 H (74-99) mg/dL POC Glucose (mg/dL) 182 H (75-99) mg/dL AST 62 H (17-59) U/L Alkaline Phosphatase 132 H (38-126) U/L Creatine Kinase 195 H (55-170) U/L 05/27/19 Range/Units 12:07 WBC (3.8-10.6) k/uL RBC (4.30-5.90) m/uL Hgb (13.0-17.5) gm/dL Hct (39.0-53.0) % Plt Count (150-450) k/uL Neutrophils # (Manual) (1.3-7.7) k/uL Lymphocytes # (Manual) (1.0-4.8) k/uL Nucleated RBCs (0-0) /100 WBC APTT 20.9 L (22.0-30.0) sec Sodium (137-145) mmol/L Chloride (98-107) mmol/L BUN (9-20) mg/dL Glucose (74-99) mg/dL POC Glucose (mg/dL) (75-99) mg/dL AST (17-59) U/L Alkaline Phosphatase (38-126) U/L Creatine Kinase (55-170) U/L Assessment and Plan Assessment: acute large middle infarct with left hemipareses left lung cancer , metastatic to the bone , adrenal and brain pancytopenia with severe leukopenia and thrombocytopenia h/o GERD h/o multiple sclerosis Plan: this is a 43 yo M who present with acute right brain stroke, pt on the top of that he has sever thrombocytopenia, pt could not be given aspirin or anticoagulation in view of his sever thrombocytopenia, oncology consult and neurology consult was called . Continue with symptomatic treatment. Monitor lytes and vitals. DVT and GI prophylaxis. Further recommendations of the clinical course of the patient DVT prophylaxis No anticoagulation in view of severe thrombocytopenia GI Prophylaxis: Pepcid Prognosis is guarded
--- NOTE | 2019-05-27 19:49 | P.DS ---
Providers Consults: 05/27/19 14:05 Consult Physician Urgent Consulting Provider: Angie Mora Consult Reason/Comments: cva Do you want consulting provider notified?: Already Contacted 05/27/19 14:06 Consult Physician Urgent Consulting Provider: Jean Paul Wade Consult Reason/Comments: Oncological care Do you want consulting provider notified?: Already Contacted Primary care physician: Leigh Ann Arceo [facility] Course: please see H&P from today for more details pt was transfer later on by ED team to [facility] upon family request before i have a change to re-evaluate him or meet him again, please see ED note for more details. Patient Condition at Discharge: Serious Plan - Discharge Summary New Discharge Prescriptions: No Action Gabapentin [Neurontin] 300 mg PO TID Dextroamphetamine/Amphetamine [Adderall] 30 mg PO DAILY Citalopram Hydrobromide [CeleXA] 20 mg PO DAILY Tysabri 1 dose IV Q30D Baclofen [Lioresal] 20 mg PO Q8H Discharge Medication List Citalopram Hydrobromide [CeleXA] 20 mg PO DAILY 04/23/18 [History] Dextroamphetamine/Amphetamine [Adderall] 30 mg PO DAILY 04/23/18 [History] Gabapentin [Neurontin] 300 mg PO TID 04/23/18 [History] Tysabri 1 dose IV Q30D 04/23/18 [History] Baclofen [Lioresal] 20 mg PO Q8H 05/27/19 [History] Follow up Appointment(s)/Referral(s): Leigh Ann Arceo MD [Primary Care Provider] - 1-2 days Discharge Disposition: ADMITTED IP TO THIS HOSP
[2019-05-27] MEDS ORDERED: FAMOTIDINE 20 MG/2 ML VIAL IV SCH (21:00)
== END 2019-05-27 18:07 | disposition other institution (70) ==
LOC: EC 11:46 → UNDOADMIN 14:05 → 3SCARD 14:05 → EC 18:07
DX: D69.6 Thrombocytopenia, unspecified (principal); I63.9 Cerebral infarction, unspecified; R47.01 Aphasia; G81.94 Hemiplegia, unspecified affecting left nondominant side; M79.89 Other specified soft tissue disorders; C79.31 Secondary malignant neoplasm of brain; C79.51 Secondary malignant neoplasm of bone; C79.70 Secondary malignant neoplasm of unspecified adrenal gland; G35 Multiple sclerosis; Z66 Do not resuscitate; F17.200 Nicotine dependence, unspecified, uncomplicated; Z79.899 Other long term (current) drug therapy; Z85.118 Personal history of other malignant neoplasm of bronchus and lung; Z92.21 Personal history of antineoplastic chemotherapy; Z92.3 Personal history of irradiation; Z90.2 Acquired absence of lung [part of]
CPT/HCPCS: 36415; 93005; 80053; 82550; 85025; 85610; 85730; 71045; 72125; 70496; 70450; 70498; 99291; 96374; 96361 ×3; J2270; Q9967